=== PATIENT | female | born 1960 | race Caucasian/White ===

== ENCOUNTER → 2016-06-23 | Outpatient (CLI) | payer BC ==
[2016-06-23 10:30] LABS: ALT 38 U/L (9-52); AST 30 U/L (14-36); Cholesterol 180 mg/dL (<200); HDL Cholesterol 69 mg/dL (40-60); Triglycerides 72 mg/dL (<150)
== END | disposition home or self-care (01) ==
LOC: LABWHC1 09:43
PROVIDERS: ATTEND Internal Medicine Cardiovascular Disease
DX: E78.00 Pure hypercholesterolemia, unspecified (principal)
CPT/HCPCS: 36415; 80061; 84450; 84460

== ENCOUNTER → 2016-07-06 | Outpatient (CLI) | payer BC ==
--- NOTE | 2016-07-08 11:12 | MM ---
Reason for exam: screening (asymptomatic). Last mammogram was performed 1 year and 4 months ago. History: Patient is postmenopausal. Family history of breast cancer in maternal aunt at age 62. Physical Findings: A clinical breast exam by your physician is recommended on an annual basis and results should be correlated with mammographic findings. MG Screening Mammo w CAD Bilateral CC and MLO view(s) were taken. Prior study comparison: March 18, 2015, mammogram, performed at [facility]. October 07, 2012, mammogram, performed at [facility]. There are scattered fibroglandular densities. Finding: There are typically benign round calcifications in both breasts. There is no discrete abnormality. ASSESSMENT: Benign, BI-RAD 2 RECOMMENDATION: Routine screening mammogram of both breasts in 1 year.
== END | disposition home or self-care (01) ==
LOC: RADMAMWWP 07:03
PROVIDERS: ATTEND Family Medicine
DX: Z12.31 Encounter for screening mammogram for malignant neoplasm of breast (principal)

== ENCOUNTER → 2018-03-28 | Outpatient (CLI) | payer BC ==
[2018-03-28 12:54] LABS: ALT 19 U/L (9-52); AST 30 U/L (14-36); Albumin 4.3 g/dL (3.5-5.0); Alkaline Phosphatase 105 U/L (38-126); Anion Gap 9 mmol/L; Blood Urea Nitrogen 15 mg/dL (7-17); Calcium 10.1 mg/dL (8.4-10.2); Carbon Dioxide 29 mmol/L (22-30); Chloride 104 mmol/L (98-107); Glucose 94 mg/dL (74-99); HCT 41.2 % (34.0-46.0); HGB 12.8 gm/dL (11.4-16.0); MCH 28.3 pg (25.0-35.0); MCHC 31.2 g/dL (31.0-37.0); MCV 90.7 fL (80.0-100.0); Mean Platelet Volume 6.9; Platelet Count 333 k/uL (150-450); Potassium 4.5 mmol/L (3.5-5.1); RBC 4.54 m/uL (3.80-5.40); RDW 12.4 % (11.5-15.5); Sodium 142 mmol/L (137-145); Total Bilirubin 0.5 mg/dL (0.2-1.3); Total Protein 7.5 g/dL (6.3-8.2); WBC 7.4 k/uL (3.8-10.6)
== END ==
LOC: LABWHC1 11:00
PROVIDERS: ATTEND Psychiatry & Neurology Neurology
DX: Z00.00 Encounter for general adult medical examination without abnormal findings (principal); R26.89 Other abnormalities of gait and mobility
CPT/HCPCS: 36415; 80053; 82607; 82747; 85027

== ENCOUNTER → 2018-03-30 | Outpatient (CLI) | payer BC ==
--- NOTE | 2018-03-30 12:59 | MR ---
EXAMINATION TYPE: MR brain wo/w con DATE OF EXAM: 03/30/2018 COMPARISON: 03/04/2012, 03/25/2015 HISTORY: Abnormal scan; ataxia TECHNIQUE: Multiplanar, multisequence images of the brain and brainstem is performed without and with IV contras t, utilizing 7 mL intravenous Gadavist . FINDINGS: Diffusion weighted images demonstrate no evidence of a recent infarct or other diffusion ab normality. The brain volume is age appropriate. Midline structures demonstrate normal morphology. The craniocervical junction appears within normal limits. Post contrast images demonstrate no abnormal enhancement. The dural venous sinuses appear pa tent. WHITE MATTER: There are approximately 80-100 focal areas of abnormal signal seen scattered throughout the white mat ter bilaterally. The largest lesion is seen in the posterior right parietal lobe measuring 1.9 cm. No definite callosal lesions. No enhancing lesions. Changes of chronic sinusitis noted. No abnormal signal within the cerebellum. No asymmetric atrophy r elated to the cerebellum. No enhancement within the cerebellum. No cerebellopontine angle mass. Within the left frontal convexity there is a small 3 mm area of nodular enhancement of the dura retro spectively stable most likely related to a small meningioma. IMPRESSION: 1. Diffuse nonspecific white matter changes are stable from the prior exam. Differential diagnosis in cludes remote microvascular ischemia or demyelinating process. No enhancing lesions. 2. Chronic sinusitis. 3. There is a 3 mm area of nodular enhancement of the left frontal dura branches respectively stable dating back to 2011. Too small to characterize but may represent a tiny meningioma.
== END | disposition home or self-care (01) ==
LOC: RADMRIMAIN 11:31
PROVIDERS: ATTEND Psychiatry & Neurology Neurology
DX: G96.8 Other specified disorders of central nervous system (principal); R90.82 White matter disease, unspecified
CPT/HCPCS: 70553; A9581

== ENCOUNTER → 2018-08-08 | Outpatient (CLI) | payer BC ==
--- NOTE | 2018-08-09 13:19 | MM ---
Reason for exam: screening (asymptomatic). Last mammogram was performed 2 years and 1 month ago. History: Patient is postmenopausal and has history of other cancer at age 47. Family history of breast cancer in maternal aunt at age 62. Physical Findings: A clinical breast exam by your physician is recommended on an annual basis and results should be correlated with mammographic findings. MG 3D Screening Mammo W/Cad Bilateral CC and MLO view(s) were taken. Prior study comparison: July 06, 2016, bilateral MG screening mammo w CAD. March 18, 2015, mammogram, performed at [facility]. The breast tissue is heterogeneously dense. This may lower the sensitivity of mammography. Benign appearing calcifications in the left breast. No suspicious abnormality. No significant changes when compared with prior studies. ASSESSMENT: Benign, BI-RAD 2 RECOMMENDATION: Routine screening mammogram of both breasts in 1 year.
== END ==
LOC: RADMAMWWP 09:08
PROVIDERS: ATTEND Family Medicine
DX: Z12.31 Encounter for screening mammogram for malignant neoplasm of breast (principal)
CPT/HCPCS: 77063; 77067

== ENCOUNTER 2018-09-12 08:47 | Emergency (ER) | payer BC ==
[2018-09-12 08:53] VITALS: RESP 18; TEMP 98.3
[2018-09-12] MEDS ORDERED: KETOROLAC 30 MG/ML 1 ML VIAL IVP STA (09:17)
--- NOTE | 2018-09-12 09:37 | ED ---
URI HPI - General Chief Complaint: Upper Respiratory Infection Stated Complaint: sinus infection Time Seen by Provider: 09/12/18 08:54 Source: patient, RN notes reviewed Mode of arrival: ambulatory Limitations: no limitations - History of Present Illness Initial Comments: This a 57-year-old female presents emergency Department with chief complaint of sinus infection. Patient states she's had extreme facial pain last 2 weeks worsening. Patient has been on Augmentin, doxycycline and steroids along with Flonase, Sudafed and saline rinses. Patient states that has not in improved. She states symptoms seemed to worsen she is more pain on the right versus the left. She states that she does have history of sinus issues but never to this extent. Denies any prior sinus surgeries, nasal surgeries. Patient denies any fever, chills. She hasn't been to a headache but denies any neck pain or neck stiffness. Patient states that she does not grossly she does not feel well. She has no chest or abdominal pain no shortness of breath. - Related Data Home Medications Medication Instructions Recorded Confirmed Acetaminophen Tab [Tylenol Tab] 975 mg PO Q4H PRN 09/12/18 09/12/18 Cyclobenzaprine [Flexeril] 10 mg PO TID 09/12/18 09/12/18 Doxycycline Hyclate 100 mg PO BID 09/12/18 09/12/18 Etodolac [Lodine] 400 mg PO BID 09/12/18 09/12/18 Valsartan/Hydrochlorothiazide 1 tab PO DAILY 09/12/18 09/12/18 [Valsartan-Hctz 160-12.5 mg Tab] clonazePAM [KlonoPIN] 1 mg PO HS 09/12/18 09/12/18 Previous Rx's Medication Instructions Recorded carBAMazepine [carBAMazepine ER] 0 mg PO DIRECTED #30 cap 09/12/18 Allergies Allergy/AdvReac Type Severity Reaction Status Date / Time Sulfa (Sulfonamide Allergy Unknown Verified 09/12/18 10:14 Antibiotics) Review of Systems ROS Statement: Those systems with pertinent positive or pertinent negative responses have been documented in the HPI. ROS Other: All systems not noted in ROS Statement are negative. Past Medical History Past Medical History: Hypertension History of Any Multi-Drug Resistant Organisms: None Reported Past Surgical History: Hysterectomy Past Psychological History: No Psychological Hx Reported Smoking Status: Former smoker Past Alcohol Use History: None Reported Past Drug Use History: None Reported General Exam Limitations: no limitations General appearance: alert, in no apparent distress Head exam: Present: atraumatic, normocephalic, normal inspection Eye exam: Present: normal appearance, PERRL, EOMI. Absent: scleral icterus, conjunctival injection, periorbital swelling ENT exam: Present: normal oropharynx, mucous membranes moist, TM's normal bilaterally, normal external ear exam. Absent: normal exam (Facial tenderness moderate severe maxillary and frontal) Neck exam: Present: normal inspection, tenderness (Anterior), full ROM. Absent: meningismus, lymphadenopathy Respiratory exam: Present: normal lung sounds bilaterally. Absent: respiratory distress, wheezes, rales, rhonchi, stridor Cardiovascular Exam: Present: regular rate, normal rhythm, normal heart sounds. Absent: systolic murmur, diastolic murmur, rubs, gallop, clicks GI/Abdominal exam: Present: soft, normal bowel sounds. Absent: distended, tenderness, guarding, rebound, rigid Course Vital Signs 09/12/18 08:50 Temperature 98.3 F Pulse Rate 84 Respiratory 18 Rate Blood Pressure 141/83 O2 Sat by Pulse 100 Oximetry Medical Decision Making - Medical Decision Making 57-year-old female presents emergency Department for facial pain. Patient's pain is bilateral has been persistent for 2 weeks and worsening. Patient was told that she had acute sinusitis though CT has no evidence of acute sinusitis, mass or any other acute findings. Symptoms may be consistent with trigeminal neuralgia bilaterally. Patient will be started on promethazine and follow-up neurology. Patient may also follow-up with ENT. Patient otherwise neurologically intact, no signs of meningismus. - Lab Data Result diagrams: 09/12/18 10:48 09/12/18 10:48 Lab Results 09/12/18 09/12/18 Range/Units 10:48 10:48 WBC 10.4 (3.8-10.6) k/uL RBC 4.79 (3.80-5.40) m/uL Hgb 13.5 (11.4-16.0) gm/dL Hct 43.5 (34.0-46.0) % MCV 90.6 (80.0-100.0) fL MCH 28.2 (25.0-35.0) pg MCHC 31.1 (31.0-37.0) g/dL RDW 13.0 (11.5-15.5) % Plt Count 375 (150-450) k/uL Neutrophils % 53 % Lymphocytes % 31 % Monocytes % 6 % Eosinophils % 7 % Basophils % 1 % Neutrophils # 5.5 (1.3-7.7) k/uL Lymphocytes # 3.2 (1.0-4.8) k/uL Monocytes # 0.7 (0-1.0) k/uL Eosinophils # 0.7 (0-0.7) k/uL Basophils # 0.1 (0-0.2) k/uL Hypochromasia Slight Sodium 141 (137-145) mmol/L Potassium 4.1 (3.5-5.1) mmol/L Chloride 105 (98-107) mmol/L Carbon Dioxide 28 (22-30) mmol/L Anion Gap 8 mmol/L BUN 14 (7-17) mg/dL Creatinine 0.77 (0.52-1.04) mg/dL Est GFR (CKD-EPI)AfAm >90 (>60 ml/min/1.73 sqM) Est GFR (CKD-EPI)NonAf 86 (>60 ml/min/1.73 sqM) Glucose 78 (74-99) mg/dL Calcium 10.5 H (8.4-10.2) mg/dL Total Bilirubin 0.7 (0.2-1.3) mg/dL AST 30 (14-36) U/L ALT 39 (9-52) U/L Alkaline Phosphatase 112 (38-126) U/L Total Protein 7.3 (6.3-8.2) g/dL Albumin 4.4 (3.5-5.0) g/dL Disposition Clinical Impression: Trigeminal neuralgia Disposition: HOME SELF-CARE Condition: Stable Instructions (If sedation given, give patient instructions): Trigeminal Neuralgia (ED) Additional Instructions: Please return to the Emergency Department if symptoms worsen or any other concerns. Prescriptions: carBAMazepine [carBAMazepine ER] 0 mg PO DIRECTED #30 cap Is patient prescribed a controlled substance at d/c from ED?: No Referrals: Ashley Del Cid MD [Primary Care Provider] - 1-2 days Mahesh El MD [STAFF PHYSICIAN] - 1-2 days Layne Chambers MD [Medical Doctor] - 1-2 days Sharyn Dunne MD [STAFF PHYSICIAN] - 1-2 days Time of Disposition: 12:17
--- NOTE | 2018-09-12 10:10 | CT ---
EXAMINATION TYPE: CT facial bones wo con DATE OF EXAM: 09/12/2018 COMPARISON: None HISTORY: Facial pain, pressure, dental and jaw pain x [address] DLP: 459.1 mGycm CONTRAST: 0 mL of Isovue 300 The paranasal sinuses are examined in the axial plane at 2 mm thick sections. Reconstructed images i n the coronal plane were obtained. There is dental amalgam scatter artifact The maxillary sinuses are clear. The ethmoid air cells are clear. The sphenoid sinuses are clear. The frontal sinuses are clear. The septum is evaluated. There is septal deviation to the right. The ostiomeatal units are patent. Temporomandibular junctions appear within normal limits. Some degenerative change at the left temporo mandibular junction is suspected. Portion of the mastoid air cells within the [id number] are clear . IMPRESSIONS: 1. No suspicious abnormality to account for patient's symptoms.
[2018-09-12] MEDS ORDERED: HYDROcodone/APAP 5-325MG 1 EACH TAB PO STA (10:29)
[2018-09-12 11:36] LABS: ALT 39 U/L (9-52); AST 30 U/L (14-36); Albumin 4.4 g/dL (3.5-5.0); Alkaline Phosphatase 112 U/L (38-126); Anion Gap 8 mmol/L; Blood Urea Nitrogen 14 mg/dL (7-17); Calcium 10.5 mg/dL (8.4-10.2); Carbon Dioxide 28 mmol/L (22-30); Chloride 105 mmol/L (98-107); Glucose 78 mg/dL (74-99); Potassium 4.1 mmol/L (3.5-5.1); Sodium 141 mmol/L (137-145); Total Bilirubin 0.7 mg/dL (0.2-1.3); Total Protein 7.3 g/dL (6.3-8.2)
[2018-09-12 11:46] LABS: Basophils # (A) 0.1 k/uL (0-0.2); Basophils % (A) 1 %; Eosinophils # (A) 0.7 k/uL (0-0.7); Eosinophils % (A) 7 %; HCT 43.5 % (34.0-46.0); HGB 13.5 gm/dL (11.4-16.0); Hypochromasia Slight; Lymphocytes # (A) 3.2 k/uL (1.0-4.8); Lymphocytes % (A) 31 %; MCH 28.2 pg (25.0-35.0); MCHC 31.1 g/dL (31.0-37.0); MCV 90.6 fL (80.0-100.0); Mean Platelet Volume 7.4; Monocytes # (A) 0.7 k/uL (0-1.0); Monocytes % (A) 6 %; Neutrophils # (A) 5.5 k/uL (1.3-7.7); Neutrophils % (A) 53 %; Platelet Count 375 k/uL (150-450); RBC 4.79 m/uL (3.80-5.40); WBC 10.4 k/uL (3.8-10.6)
[2018-09-12] MEDS ORDERED: carBAMazepine 200 MG TAB PO STA (12:11)
[2018-09-12] MEDS ORDERED: ACET/COD 300 MG/30 MG STARTER PACK 6 TAB BTL PO STA (12:18)
[2018-09-12 12:27] VITALS: BP 135/77; PULSE 88
== END 2018-09-12 12:38 | disposition home or self-care (01) ==
LOC: EC 08:47
DX: G50.0 Trigeminal neuralgia (principal); I10 Essential (primary) hypertension; Z87.891 Personal history of nicotine dependence; Z79.1 Long term (current) use of non-steroidal anti-inflammatories (NSAID); Z79.899 Other long term (current) drug therapy; Z88.2 Allergy status to sulfonamides; Z53.8 Procedure and treatment not carried out for other reasons
CPT/HCPCS: 36415; 70486; 80053; 85025; 99284

== ENCOUNTER → 2018-11-17 | Outpatient (CLI) | payer BC ==
--- NOTE | 2018-11-17 13:45 | XR ---
EXAMINATION TYPE: XR skull complete DATE OF EXAM: 11/17/2018 COMPARISON: NONE HISTORY: Head pain TECHNIQUE: 4 views of the skull were obtained FINDINGS: The calvarium is grossly intact with no sutural widening. Sella turcica is unremarkable. Th ere is mild mucosal thickening in the right maxillary sinus. Remaining visualized paranasal sinuses a nd mastoid air cells appear well aerated. Nasal septum appears midline. No lytic or sclerotic lesion is seen within the calvarium. IMPRESSION: No evidence of skull fracture, lytic lesion or blastic lesion.
--- NOTE | 2018-11-17 13:47 | XR ---
EXAMINATION TYPE: XR mandible complete DATE OF EXAM: 11/17/2018 COMPARISON: CT of the facial bones dated 09/12/2018 HISTORY: Diffuse facial pain TECHNIQUE: 5 views of the mandible were obtained FINDINGS: There is no acute fracture or dislocation seen within the mandible. There is no suspicious osseous lesion identified. The visualized portions of the thoracic inlet and upper lungs appear unrem arkable and lungs appear well aerated. There is mild mucosal thickening in the right maxillary sinus. Moderate disc disease or degenerative disc disease is seen of the visualized upper cervical spine. N sangeetha septum remains overall midline. Temporomandibular joints are symmetric. IMPRESSION: No acute fracture or dislocation of the mandible. Temporomandibular joints are symmetric and unremarkable.
== END | disposition home or self-care (01) ==
LOC: RADXRMAIN 13:04
PROVIDERS: ATTEND Psychiatry & Neurology Neurology
DX: R51 Headache (principal)
CPT/HCPCS: 70110; 70260

== ENCOUNTER → 2018-12-19 | Outpatient (CLI) | payer BC ==
--- NOTE | 2018-12-19 09:30 | CT ---
EXAMINATION TYPE: CT facial bones wo/w con DATE OF EXAM: 12/19/2018 COMPARISON: 09/12/2018 HISTORY: Facial pain Automated exposure control for dose reduction was used. CONTRAST: CT scan of the facial bones is performed , patient injected with 75 mL of Isovue 300. TECHNIQUE: CT scan of the sinuses is performed without contrast, axial images are obtained, coronal r eformatted images are also reviewed. FINDINGS: The paranasal sinuses including the frontal, ethmoid, sphenoid, and maxillary sinuses bila terally are well-aerated minimal ethmoidal soft tissue opacification. The ostiomeatal complex is pat ent bilaterally on the coronal images. Visualized portion of mastoid air cells show no abnormal opacification. The globes are intact bilate rally. Shotty adenopathy noted. IMPRESSION: 1. Minimal chronic ethmoidal sinusitis
== END | disposition home or self-care (01) ==
LOC: RADCTMAIN 08:16
PROVIDERS: ATTEND Psychiatry & Neurology Neurology
DX: J32.2 Chronic ethmoidal sinusitis (principal)
CPT/HCPCS: 70488; Q9967

== ENCOUNTER 2019-04-06 06:36 | Day surgery (SDC) | payer BC ==
[2019-04-04 13:55] VITALS: BMI 21.2
[~2019-04-06 06:36] MED LIST: DEXAMETHASONE SOD PHOSPHATE 10 MG/ML 1 ML VIAL IV ONE; HYDROmorphone 0.5 MG/0.5 ML SYRINGE IVP PRN; LACTATED RINGERS 1,000 ML IV SCH; MIDAZOLAM 2 MG/2 ML VIAL IV PRN; ONDANSETRON 4 MG/2 ML VIAL IVP ONE
[2019-04-06 06:58] VITALS: RESP 16
[2019-04-06] MEDS ORDERED: PROPOFOL 10 MG/ML 20 ML VIAL IV ONE (07:58)
[2019-04-06] MEDS ORDERED: LIDOCAINE 1% INJ 10MG/ML (20 ML MDV) ONE (07:58)
[2019-04-06] MEDS ORDERED: fentaNYL (PF) 50 MCG/ML 2 ML AMP ONE (07:58)
[2019-04-06] MEDS ORDERED: LIDOCAINE 2%-EPI 1:100,000 20 ML VIAL ONE (07:58)
[2019-04-06] MEDS ORDERED: ROPIVACAINE 5 MG/ML 30 ML VIAL ONE (07:58)
[2019-04-06] MEDS ORDERED: LACTATED RINGERS 1,000 ML IV ONE (09:40)
--- NOTE | 2019-04-06 10:15 | P.ANPRN ---
Procedure Note - Anesthesia - Nerve Block Performed Right Adductor Canal Single Time Out Performed: Yes Location of Patient Procedure: PreOp Indication: Acute Post-Operative Pain, Dx/Pain Location (Right foot), Requested by Surgeon Specifically requested for management of pain by DrEphraim: Yandel Abbott Sedation Type: Sedate with meaningful contact maintained Position: Supine Catheter: None Needle Types: Pajunk Needle Gauge: 21 Ultrasound used to visualize needle placement: Yes Ultrasound used to observe medication spread: Yes Injectate: Other (see comment) (Lidocaine 1% with epinephrine -- 10cc) Adjunct: Epinephrine (see comment for dilution ratio)
--- NOTE | 2019-04-06 10:19 | P.ANPRN ---
Procedure Note - Anesthesia - Nerve Block Performed Right Popliteal Single Indication: Acute Post-Operative Pain, Dx/Pain Location (Right foot), Requested by Surgeon Specifically requested for management of pain by DrEphraim: Yandel Abbott Sedation Type: Sedate with meaningful contact maintained Preparation: Sterile Prep Position: Left Lateral Catheter: None Needle Types: Pajunk Needle Gauge: 21 Ultrasound used to visualize needle placement: Yes Ultrasound used to observe medication spread: Yes Injectate: 0.5% Ropivacaine (see comment for volume) (15 cc and 1% lidocaine + epinephrine --10cc)
--- NOTE | 2019-04-06 10:19 | P.OP ---
Date of Procedure: 04/06/19 Preoperative Diagnosis: Right hypermobile hallux valgus Postoperative Diagnosis: Same Procedure(s) Performed: 1. Correction of right first ray hypermobility with triplanar correction and first tarsometatarsal joint arthrodesis 2. Correction of right hallux valgus with modified Villalpando procedure 3. Use of intraoperative fluoroscopy by physician, right leg 4. Application of short leg splint by physician, right leg Anesthesia: GIRMA, regional Surgeon: Yandel Abbott Whittling Room Operator #1: Hank Paulino Estimated Blood Loss (ml): 5 IV fluids (ml): 1,200 Pathology: none sent Condition: stable Disposition: PACU Indications for Procedure: The patient is a very pleasant. His healthy 58-year-old female with a long- standing history of problems with her right foot. Clinically she had a symptomatically and hypermobile hallux valgus. Her x-rays showed a widened 1-2 intermetatarsal angle and uncovered the lateral sesamoid. She has failed over 6 months of nonsurgical treatment and presented to my office requesting surgery. Since he had failed a long course of nonsurgical treatment and had a painful hallux valgus deformity I think it is reasonable to proceed with surgery. We discussed different surgical options and based on the patient's age, degree of deformity, and physical exam findings I recommended a Lapidus type procedure. We discussed potential risks and competitions of surgery including but not limited to risk of anesthesia, superficial infection, deep infection, delayed wound healing, superficial wound necrosis, deep wound necrosis, nonunion of the fusion site, malunion of the fusion site, over correction of the deformity, under correction of the deformity, recurrence, symptomatically hardware, DVT, PE, other medical complications, dissatisfaction with surgery, and possibly loss of life or limb. The patient voiced understanding of these potential complications and also acknowledges that other less common complications were possible. She provided her verbal and written consent to go forward with surgery. Operative Findings: Intraoperative fluoroscopy pictures were saved as a "left foot" on imaging, but this was simply a mirror image mistake on the fluoroscopy tower. The correct right foot was operated on. Description of Procedure: The patient was identified in preoperative holding and the correct right limb was marked with my initials. I reviewed the consent form with the patient and her . All their questions were answered. The patient was given a block by anesthesia. She was then brought back to the OR and was positioned on the or table. A general anesthetic and preoperative antibiotics were given. A tourniquet was applied to the proximal aspect of the right leg. The right leg was then prepped and draped in the standard sterile fashion. Prior to starting surgery timeout was performed identifying the correct patient, operative extremity, and procedure. The patient's leg was then elevated, exsanguinated with an Esmarch bandage, and the tourniquet was inflated to 250 mmHg. I began by outlining a straight dorsal incision to the first tarsometatarsal joint starting at the proximal pole of the medial cuneiform and extending distally to the midshaft of the first metatarsal. Skin incision was made with a scalpel. The EHL tendon sheath was incised and the tendon was retracted laterally. The capsule over the first tarsometatarsal joint was sharply opened. A saw was used to plane the first metatarsal base to allow for rotation. A quarter inch osteotome was used to pie crust the plantar capsule to free up the first metatarsal. Attention was turned to the first webspace for the modified Villalpando portion of the procedure. A 1 cm incision was made. Dissection was carried down to the subcutaneous tissue. The lateral capsule of the first MTP joint and sesamoid suspensory ligament was incised. I was easily able to reduce the proximal phalanx on the metatarsal head. Attention was then turned back to the proximal aspect of the first metatarsal. A guidepin was placed in the 2 o'clock position 1 cm distal to the joint. Using the joystick pin and light pressure on the first metatarsal head I was able to rotate the metatarsal and close down the intermetatarsal space nicely covering the sesamoids. A standard 2.5 mm fulcrum was placed in a pocket hole at the proximal base of the first metatarsal laterally. A cutting guide was placed over the dorsal aspect of the first TMT joint and a stab incision was made just distal to the cut guide over the midshaft of the second metatarsal. The position was then placed with 1 pricilla over the lateral cortex of the second metatarsal and the other pricilla over the medial aspect of the first metatarsal. While the acute care nursing assistant gently rotated the guide pin at the base of the first metatarsal I tightened the positioner until two finger tightness was achieved. Clinically the toe appeared straight. Fluoroscopy was used to verify that both the lateral sesamoid was covered and the intermetatarsal angle was closed down. There was gapping seen medially at the first tarsometatarsal joint. Laterally there did not appear to be any elevation of the first ray. A guidepin was placed through the positioner holding the correction. A joint seeker for a long angle cut guide was placed in the most lateral aspect of the first tarsometatarsal joint "making a corner" with the fulcrum. A long angle cutting guide was positioned over the joint seeker and fluoroscopy was used to verify that the distal tip of the cut guide was centered in the first metatarsal. It was pinned in place proximally and distally. The joint seeker was removed and fluoroscopy was used to take a shot" dominant gunsight" to assure symmetric cuts off the base of the first metatarsal medial cuneiform. The slot over the medial cuneiform appeared parallel to the second tarsometatarsal joint. A small microsagittal saw was used to make the cuts. The pin through the positioner was removed followed by the positioner. The oblique pin through the cuneiform was removed followed by the cut guide. A compression/distractor device was placed with an extra 10 of rotation. The com pression/distractor device was opened and the bone was removed. Symmetric flat cuts had been achieved. The wound was thoroughly irrigated. A 2.0 mm drill bit was used to fenestrate the cut surfaces of the bone. I then gently compressed the compressor/distractor device until there was adequate compression across the joint. Clinically the joint appeared to be compressed and the toe was straight. Fluoroscopy was used to verify reduction of the hallux valgus deformity and symmetric compression across the joint. On the AP view the intermetatarsal angle appeared to be closed down and the joint compressed. On the lateral view the joint appeared to be compressed with no plantar gapping. An obliquely placed A K wire was placed from the dorsal lateral aspect of the first metatarsal into the medial cuneiform. A medial locking plate was placed, its position verified with fluoroscopy, and secured with locking screws. The compressor/distractor device was removed. A plate was placed dorsally, pinned in place, verified with fluoroscopy, and secured with locking screws. Attention was then turned to the medial eminence of the first MTP joint. A longitudinal incision was made. The capsule was incised. A Yrn was used to contour a small dorsomedial bump off the first metatarsal. A small section of the capsule was removed and the joint was imbricated with 0 Vicryl further correcting the hallux valgus deformity. Final fluoroscopic images were taken. On the AP view the joint appeared to be nicely compressed and the hardware was in acceptable position. The intermetatarsal angle was closed down and both sesamoids were covered. On the lateral view the hardware was in acceptable position, the joint appeared to be compressed. And there was no elevation of the first metatarsal. All wounds were thoroughly irrigated and closed in layers. Sterile dressing was applied. The tourniquet was let down. A well-padded bulky Nagy splint was placed with the ankle in neutral. The patient was awoken from her anesthetic, transferred to a gurney, and brought to recovery having tolerated the procedure well. Hank Paulino PA-C was required as a skilled acute care nursing assistant. Plan the patient is going to discharge home as an outpatient. She is to remain strictly nonweightbearing for 2 weeks. She'll follow-up in 2 weeks for splint removal, nonweightbearing x-rays of the foot, and likely suture removal. If she is doing well that time and her incisions are healed she can weight-bear as tolerated in a boot.
[2019-04-06 10:40] VITALS: TEMP 97
--- NOTE | 2019-04-06 11:41 | XR ---
Fluoroscopy INDICATION: Pain FINDINGS: Fluoroscopy time: 50 seconds. Images obtained: 7. IMPRESSIONS: 1. Documentation of fluoroscopy.
[2019-04-06 12:03] VITALS: BP 136/85; PULSE 97
== END 2019-04-06 12:35 | disposition home or self-care (01) ==
LOC: OR 06:36
PROVIDERS: ATTEND Orthopaedic Surgery
DX: M20.11 Hallux valgus (acquired), right foot (principal); I10 Essential (primary) hypertension; G50.0 Trigeminal neuralgia; M26.609 Unspecified temporomandibular joint disorder, unspecified side; R63.4 Abnormal weight loss; Z68.21 Body mass index [BMI] 21.0-21.9, adult; Z85.828 Personal history of other malignant neoplasm of skin; Z79.899 Other long term (current) drug therapy; Z88.2 Allergy status to sulfonamides
CPT/HCPCS: 64447; 64445; 76942; 73620; 28740; 28292; C1713; J2250; J1100; J0690; J2405; J2001; J3010; J2795; J2704

== ENCOUNTER → 2019-05-17 | Outpatient (CLI) | payer BC ==
--- NOTE | 2019-05-17 13:17 | US ---
EXAMINATION TYPE: US venous doppler duplex LE RT DATE OF EXAM: 05/17/2019 12:03 PM COMPARISON: NONE CLINICAL HISTORY: M79.671 Pain in right foot. status post bunionectomy. SIDE PERFORMED: Right TECHNIQUE: The lower extremity deep venous system is examined utilizing real time linear array sonog sree with graded compression, doppler sonography and color-flow sonography. VESSELS IMAGED: External Iliac Vein (EIV) Common Femoral Vein Deep Femoral Vein Greater Saphenous Vein * Femoral Vein Popliteal Vein Small Saphenous Vein * Proximal Calf Veins (* superficial vessels) Right Leg: Negative for DVT Grayscale, color doppler, spectral doppler imaging performed of the deep veins of the right lower ext remity. There is normal flow, compressibility, vascular waveforms. Results communicated to [facility] by tomography technologist shortly after exam was compl eted. IMPRESSION: No ultrasound evidence for acute DVT in the right lower extremity.
== END | disposition home or self-care (01) ==
LOC: RADUSWWP 11:42
PROVIDERS: ATTEND Orthopaedic Surgery
DX: M79.671 Pain in right foot (principal); I10 Essential (primary) hypertension; M20.11 Hallux valgus (acquired), right foot; I80.9 Phlebitis and thrombophlebitis of unspecified site; Z85.9 Personal history of malignant neoplasm, unspecified; Z87.891 Personal history of nicotine dependence; Z48.89 Encounter for other specified surgical aftercare

== ENCOUNTER → 2019-07-18 | Outpatient (CLI) | payer BC ==
[2019-07-18 10:37] LABS: HCT 40.3 % (34.0-46.0); HGB 12.7 gm/dL (11.4-16.0); MCH 27.9 pg (25.0-35.0); MCHC 31.5 g/dL (31.0-37.0); MCV 88.7 fL (80.0-100.0); Mean Platelet Volume 7.2; Platelet Count 374 k/uL (150-450); RBC 4.54 m/uL (3.80-5.40); RDW 12.5 % (11.5-15.5); WBC 6.8 k/uL (3.8-10.6)
[2019-07-18 18:09] LABS: Anion Gap 10.4 mmol/L (4.00-12.00); Carbon Dioxide 28.6 mmol/L (21.6-31.8); Potassium 3.8 mmol/L (3.5-5.5)
== END | disposition home or self-care (01) ==
LOC: LABWHC1 09:46
PROVIDERS: ATTEND Psychiatry & Neurology Neurology
DX: R51 Headache (principal)
CPT/HCPCS: 36415; 80051; 84450; 84460; 85027

== ENCOUNTER → 2019-08-08 | Outpatient (CLI) | payer BC ==
[2019-08-08 10:03] LABS: Basophils # (A) 0.1 k/uL (0-0.2); Basophils % (A) 1 %; Eosinophils # (A) 0.5 k/uL (0-0.7); Eosinophils % (A) 7 %; HCT 37.1 % (34.0-46.0); HGB 11.8 gm/dL (11.4-16.0); Lymphocytes # (A) 2.3 k/uL (1.0-4.8); Lymphocytes % (A) 32 %; MCH 28.1 pg (25.0-35.0); MCHC 31.7 g/dL (31.0-37.0); MCV 88.7 fL (80.0-100.0); Mean Platelet Volume 7.1; Monocytes # (A) 0.5 k/uL (0-1.0); Monocytes % (A) 7 %; Neutrophils # (A) 3.7 k/uL (1.3-7.7); Neutrophils % (A) 51 %; Platelet Count 401 k/uL (150-450); RBC 4.18 m/uL (3.80-5.40); RDW 12.9 % (11.5-15.5); WBC 7.2 k/uL (3.8-10.6)
[2019-08-08 16:29] LABS: African American GFR (CKD) 94.2 (60.0-200.0); Albumin 4.1 g/dL (3.80-4.90); Albumin/Globulin Ratio 2.16 (1.60-3.17); Anion Gap 7.7 mmol/L (4.00-12.00); Calcium 9.5 mg/dL (8.7-10.3); Carbon Dioxide 28.3 mmol/L (21.6-31.8); Chol/HDL Ratio 3.05; Globulin 1.9 g/dL (1.6-3.3); LDL Cholesterol,Calculated 96.2 mg/dL (0.0-131.0); Non-African American GFR(CKD) 81.3 (60.0-200.0); Potassium 3.8 mmol/L (3.5-5.5); Total Bilirubin 0.3 mg/dL (0.2-1.2); VLDL Calculation 16.8 mg/dL (5.00-40.00)
== END | disposition home or self-care (01) ==
LOC: LABWHC1 09:08
PROVIDERS: ATTEND Family Medicine
DX: Z00.00 Encounter for general adult medical examination without abnormal findings (principal)
CPT/HCPCS: 36415; 80053; 80061; 84443; 85025

== ENCOUNTER → 2019-12-01 | Outpatient (CLI) | payer BC ==
--- NOTE | 2019-12-05 11:33 | MM ---
Reason for exam: screening (asymptomatic). Last mammogram was performed 1 year and 4 months ago. History: Patient is postmenopausal and has history of other cancer at age 47. Family history of breast cancer in maternal aunt at age 62. Physical Findings: A clinical breast exam by your physician is recommended on an annual basis and results should be correlated with mammographic findings. MG 3D Screening Mammo W/Cad Bilateral CC and MLO view(s) were taken. Prior study comparison: August 08, 2018, bilateral MG 3d screening mammo w/cad. July 06, 2016, bilateral MG screening mammo w CAD. The breast tissue is heterogeneously dense. This may lower the sensitivity of mammography. There are benign appearing round calcifications in the left breast. There is no discrete abnormality. ASSESSMENT: Benign, BI-RAD 2 RECOMMENDATION: Routine screening mammogram of both breasts in 1 year.
== END | disposition home or self-care (01) ==
LOC: RADMAMWWP 10:22
PROVIDERS: ATTEND Family Medicine
DX: Z12.31 Encounter for screening mammogram for malignant neoplasm of breast (principal)
CPT/HCPCS: 77063; 77067

== ENCOUNTER → 2019-12-21 | Outpatient (CLI) | payer BC ==
--- NOTE | 2019-12-21 10:35 | CT ---
EXAMINATION TYPE: CT angio head DATE OF EXAM: 12/21/2019 COMPARISON: None HISTORY: Severe headache yesterday. CT DLP: 1913.1 mGycm CONTRAST: CTA [place] with 3-D reconstruction is performed and without and with IV Contrast, patient i njected with 100 mL of Isovue 370. Contrast CTA of the [place] was performed 3-D reconstruction imaging obtained at a separate workstation. Vertebrobasilar system as well as intracranial portions of the internal carotid arterie s and their major tributaries are patent. Outpouching is suggested in the region of the anterior comm unicating artery measuring 3 mm. Please note MRI provides greater sensitivity and specificity. Visua lized brain appears grossly unremarkable. 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
== END | disposition home or self-care (01) ==
LOC: RADCTMAIN 07:40
PROVIDERS: ATTEND Psychiatry & Neurology Neurology
DX: I60.9 Nontraumatic subarachnoid hemorrhage, unspecified (principal); I72.8 Aneurysm of other specified arteries
CPT/HCPCS: 70496; Q9967

== ENCOUNTER → 2020-05-28 | Outpatient (CLI) | payer BC ==
--- NOTE | 2020-05-28 13:41 | MR ---
EXAMINATION TYPE: MR angio head wo con DATE OF EXAM: 05/28/2020 COMPARISON: CT angiogram 12/21/2019, prior HISTORY: Cerebral aneurysm, nonruptured TECHNIQUE: Time of flight images focusing on the [place] were performed without contrast. Th ree-dimensional reconstructions performed on an alternate workstation. FINDINGS: Focal outpouching is noted at the medial aspect of the internal carotid artery on the right at the level of the siphon medial to the origin of the ophthalmic artery. This abnormality was not s een on previous CTA with certainty. Lesion measures 7 x 4 mm. Additional tolerated the inferior margin of the anterior communicating artery there is a focal oval a isaac measuring 5 mm, axial image 102. Anterior posterior circulation are intact. No evident dissection or embolus. 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 Anterior commu nicating artery aneurysm also noted.
== END | disposition home or self-care (01) ==
LOC: RADMRIMAIN 09:27
PROVIDERS: ATTEND Specialist
DX: I67.1 Cerebral aneurysm, nonruptured (principal)
CPT/HCPCS: 70544

== ENCOUNTER → 2020-06-11 | Outpatient (CLI) | payer BC ==
--- NOTE | 2020-06-11 12:20 | XR ---
EXAMINATION TYPE: XR chest 2V DATE OF EXAM: 06/11/2020 COMPARISON: NONE HISTORY: Chest pain TECHNIQUE: Frontal and lateral views of the chest are obtained. FINDINGS: There is no focal air space opacity. No evidence for pneumothorax. No pleural effusion. The cardiac silhouette size is within normal limits. The osseous structures are grossly intact. IMPRESSION: 1. No acute cardiopulmonary process.
[2020-06-11 12:34] LABS: Anisocytosis Slight; Basophils # (A) 0.1 k/uL (0-0.2); Basophils % (A) 1 %; Eosinophils # (A) 0.4 k/uL (0-0.7); Eosinophils % (A) 4 %; HCT 40.4 % (34.0-46.0); HGB 12.1 gm/dL (11.4-16.0); Hypochromasia Marked; Lymphocytes # (A) 2.9 k/uL (1.0-4.8); Lymphocytes % (A) 27 %; MCHC 29.8 g/dL (31.0-37.0); MCV 83.8 fL (80.0-100.0); Mean Platelet Volume 6.7; Monocytes # (A) 0.8 k/uL (0-1.0); Monocytes % (A) 8 %; Neutrophils # (A) 6.3 k/uL (1.3-7.7); Neutrophils % (A) 59 %; Platelet Count 413 k/uL (150-450); RBC 4.83 m/uL (3.80-5.40); RDW 17.3 % (11.5-15.5); WBC 10.8 k/uL (3.8-10.6)
[2020-06-11 14:58] LABS: Appearance,Urine Clear (Clear); Bilirubin,Urine Negative (Negative); Blood,Urine Trace (Negative); Color,Urine Yellow; Glucose,Urine (UA) Negative (Negative); Hyaline Casts,Urine 11 /lpf (0-2); Ketones,Urine Negative (Negative); Leukocyte Esterase,Urine Trace (Negative); Mucus,Urine Rare /hpf; Nitrite,Urine Negative (Negative); PH, Urine 5.5 (5.0-8.0); Protein,Urine Trace (Negative); RBC,Urine 13 /hpf (0-5); Specific Gravity,Urine 1.037 (1.001-1.035); Squamous Epithelial Cell,Urine 1 /hpf (0-4); Urobilinogen,Urine <2.0 mg/dL (<2.0); WBC,Urine 2 /hpf (0-5)
[2020-06-11 22:27] LABS: African American GFR (CKD) 81.1 (60.0-200.0); Albumin 4.8 g/dL (3.80-4.90); Albumin/Globulin Ratio 1.92 (1.60-3.17); Anion Gap 16.1 mmol/L (4.00-12.00); BUN/Creat Ratio 22.22 Ratio (12.00-20.00); Calcium 9.8 mg/dL (8.7-10.3); Carbon Dioxide 19.9 mmol/L (21.6-31.8); Globulin 2.5 g/dL (1.6-3.3); Potassium 4.2 mmol/L (3.5-5.5); Total Bilirubin 0.5 mg/dL (0.3-1.2); Total Protein 7.3 g/dL (6.2-8.2)
[2020-06-12 14:46] LABS: INR 0.96 (0.90-1.11); Partial Thromboplastin Time 25.4 sec (23.5-31.0); Prothrombin Time 10.4 sec (9.9-11.9)
== END | disposition home or self-care (01) ==
LOC: LABWHC1 10:49
PROVIDERS: ATTEND Specialist
DX: I67.1 Cerebral aneurysm, nonruptured (principal)
CPT/HCPCS: 36415; 71046; 80053; 81001; 85025; 85610; 85730; 93005

== ENCOUNTER → 2020-06-25 | Outpatient (CLI) | payer BC ==
--- NOTE | 2020-06-25 12:51 | XR ---
EXAMINATION TYPE: XR lumbar spine 2 or 3V DATE OF EXAM: 06/25/2020 Comparison: 04/03/2016 Clinical History: 59-year-old female low back pain, M54.5 Findings: Degenerative dextro convex curvature of the lumbar spine. The curvature appears to have progressed fr om 2016. Hypertrophic facet arthropathy mid and lower lumbar spine. Grade 1 anterolisthesis L4-L5 and L5-S1. Grade 1 retrolisthesis L1-L2 and L2-L3. These were present previously. Mild to moderate multi level degenerative disc disease. Some interval progression in disc interspace narrowing in the mid sean mbar spine. Vertebral body heights are maintained. Hyperdense debris within the right side of the colon, possibly ingested medication. Atherosclerotic a ortic calcifications. Impression: 1. Degenerated dextroconvex scoliotic curvature of the lumbar spine progressed from 2016. 2. Advanced hypertrophic facet arthropathy. Degenerative grade 1 retrolisthesis from L1 through L3 le vels and grade 1 anterolisthesis from L4 through S1 levels which were present previously as well. 3. Moderate degenerative disc disease in the mid lumbar spine has progressed.
== END | disposition home or self-care (01) ==
LOC: RADXRMAIN 12:19
PROVIDERS: ATTEND Family Medicine
DX: M43.16 Spondylolisthesis, lumbar region (principal); M51.36 Other intervertebral disc degeneration, lumbar region; M47.816 Spondylosis without myelopathy or radiculopathy, lumbar region; M41.86 Other forms of scoliosis, lumbar region
CPT/HCPCS: 72100

== ENCOUNTER → 2020-07-31 | Outpatient (CLI) | payer BC ==
[2020-07-31 19:16] LABS: HGB 10.7 g/dL (12.0-15.0); MCH 26.6 pg (27.0-32.0); MCHC 30.6 g/dL (32.0-37.0); MCV 86.8 fL (80.0-97.0); Mean Platelet Volume 9.4 fL (9.5-12.2); Platelet Count 402 X 10*3/uL (140-440); RBC 4.03 X 10*6/uL (4.10-5.20); RDW 17.7 % (11.5-14.5); WBC 8.93 X 10*3/uL (4.50-10.00)
[2020-07-31 19:41] LABS: Anion Gap 6.8 mmol/L (4.00-12.00); Carbon Dioxide 30.2 mmol/L (21.6-31.8); Potassium 4.1 mmol/L (3.5-5.5)
== END | disposition home or self-care (01) ==
LOC: LABWHC1 10:41
PROVIDERS: ATTEND Psychiatry & Neurology Neurology
DX: R51.9 Headache, unspecified (principal)
CPT/HCPCS: 36415; 80051; 84450; 84460; 85027

== ENCOUNTER → 2020-09-16 | Outpatient (CLI) | payer BC, MEDICAID ==
[2020-09-16 08:26] VITALS: BP 121/77; PULSE 70; RESP 16; TEMP 97.6
--- NOTE | 2020-09-16 08:51 | P.CONS ---
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 The patient says that she favors her right side and maybe that's why she is having pain on the right side of her lower back. The patient is in the lower lumbar area with radiation to the upper buttock area on the right side with no paresthesia in the lower extremities. The patient has no pain on the left side of her lower back. Her pain increases with walking and standing for too long and improves by sitting down and lying down in bed. The pain does not wake the patient up at night and she denies any weight loss. She also denies any bowel or bladder dysfunction. The patient has been using TENS unit on her back which helps temporarily. She denies any history of diabetes or cardiac issues. She does have a history of cerebral aneurysm at 3 mm of diameter that is being monitored yearly. Past Medical History Past Medical History: Hypertension Additional Past Medical History / Comment(s): jaw pain History of Any Multi-Drug Resistant Organisms: None Reported Past Surgical History: Hysterectomy, Orthopedic Surgery Additional Past Surgical History / Comment(s): RT FOOT SX. COLONOSCOPY. PAIN CLINIC PROCEDURES Past Anesthesia/Blood Transfusion Reactions: No Reported Reaction Past Psychological History: No Psychological Hx Reported Additional Psychological History / Comment(s): anxious r/t health issues Smoking Status: Former smoker Past Alcohol Use History: None Reported Additional Past Alcohol Use History / Comment(s): smoked 10 years 10-12cig/d adal t 1995 years ago Past Drug Use History: None Reported - Past Family History Mother Family Medical History: No Reported History Medications and Allergies Home Medications Medication Instructions Recorded Confirmed Type Valsartan/Hydrochlorothiazide 1 tab PO DAILY 09/12/18 09/16/20 History [Valsartan-Hctz 160-12.5 mg Tab] OXcarbazepine [Trileptal] 300 mg PO BID 09/11/20 09/16/20 History Propranolol HCl [Inderal LA] 120 mg PO DAILY 09/11/20 09/16/20 History Allergies Allergy/AdvReac Type Severity Reaction Status Date / Time Sulfa (Sulfonamide Allergy Swelling Verified 09/11/20 10:44 Antibiotics) Physical Exam Vitals: Vital Signs Temp Pulse Resp BP Pulse Ox 09/16/20 08:23 97.6 F 70 16 121/77 100 - Constitutional General appearance: average body habitus - EENT Eyes: PERRLA - Integumentary Integumentary: no calor, no cellulitis, no cyanotic, no decreased turgor, no flushed, no jaundiced, no normal, no normal turgor, no pale, no rash, no ulcer - Neurologic Neuro exam of the lower extremities showed normal and symmetrical muscle strength bilaterally. Normal knee reflexes bilaterally and absent ankle reflex bilaterally. Straight leg raising test is negative bilaterally. Positive tenderness in the lumbar paravertebral musculature on the right side. Facet loading test is positive on the right side. Neurologic: CNII-XII intact - Psychiatric Psychiatric: A&O x's 3, appropriate affect, intact judgment & insight Results Comments: The lumbar spine MRI which was done in July 2020 showed the following: Dextroconvex scoliosis and multilevel malalignment associated with multilevel spondylosis Moderate spinal canal stenosis from L2-3 to L5-S1 with the neural foraminal stenosis at the L5-S1 level and impingement of the right L5 nerve root Assessment and Plan Plan: This is a 59-year-old lady with what seems to be lumbar spondylosis without myelopathy and impingement of the right L5 nerve root. Clinically she shows no symptoms of lumbar spondylosis and not lumbar radiculopathy at this point. The patient may benefit from getting diagnostic lumbar medial branch block on the right side for levels L3 4, L4-L5 and L5-S1 under fluoroscopic guidance. The procedure was explained to the patient and her questions were answered. The diagnostic medial branch block leads to significant relief of pain even though it was only for a few hours then the patient may be a candidate for lumbar RFA which will prolong her pain improvement. I thank Dr. Joseph for the referral
== END ==
LOC: PNWHC3 08:10
PROVIDERS: ATTEND Anesthesiology
DX: M47.816 Spondylosis without myelopathy or radiculopathy, lumbar region (principal); I10 Essential (primary) hypertension; Z87.891 Personal history of nicotine dependence
CPT/HCPCS: 99211

== ENCOUNTER 2020-10-11 07:32 | Day surgery (SDC) | payer MEDICAID ==
[2020-10-09 14:50] VITALS: BMI 23.1
[2020-10-11 07:48] VITALS: RESP 16; TEMP 97.1
[2020-10-11] MEDS ORDERED: LACTATED RINGERS 1,000 ML IV ONE (07:51)
[2020-10-11] MEDS ORDERED: LIDOCAINE 1% (10MG/ML) FOR IV START INTRADERMA ONE (07:51)
[2020-10-11] MEDS ORDERED: MIDAZOLAM 2 MG/2 ML VIAL ONE (08:33)
[2020-10-11] MEDS ORDERED: ROPIVACAINE 5MG/ML 20ML VIAL ONE (08:33)
[2020-10-11] MEDS ORDERED: IOPAMIDOL M200 10 ML VIAL ONE (08:33)
[2020-10-11] MEDS ORDERED: fentaNYL (PF) 50 MCG/ML 2 ML AMP ONE (08:33)
[2020-10-11] MEDS ORDERED: TRIAMCINOLONE ACETONIDE 40 MG/ML 1 ML VIAL ONE (08:33)
--- NOTE | 2020-10-11 08:47 | P.PCN ---
Date of Procedure: 10/11/20 Description of Procedure: PREOPERATIVE DIAGNOSIS : Lumbar spondylosis with Facet Arthropathy without myelopathy POSTOPERATIVE DIAGNOSIS: same PROCEDURE: first Diagnostic lumbar medial branch block with fluoroscopy at L2, L3, L4, L5 right side which covers facets L3-4 and L4-5 and L5-S1 ANESTHESIA: Local anesthetic; moderate IV sedation with anesthesia team Fluoroscopy was used for the procedure and images were saved in the radiology portion of the chart. Surgeon: Chad Rey MD PROCEDURE INDICATION: Lumbar back pain without radiculopathy, not responsive to conservative management. PROCEDURE DESCRIPTION: the patient was seen and identified in the preop holding area , risks and benefits and possible complications of the procedure and alternatives were discussed with the patient, and the patient agreed to proceed with the procedure and signed the consent . IV was started , vital signs were monitored during the procedure and fluoroscopy was used to maximize the benefit and accuracy of the needle placement, and sedation was given to decrease patient anxiety. Patient was taken to the procedure room and placed in prone position. The lumbar region was prepped using chlorhexidineX-2. Under strict sterile technique using AP fluoroscopy the bilateral sacral ala were identified and using ipsilateral oblique fluoroscopy ,the junction of the transverse process and the superior articulating process of the L4, L5 vertebra which corresponds to the fluoroscopy image of the eye of the Sushil dog for the medial branches were identified. Subsequently, after local infiltration of skin with lidocaine 1% 0.2 mL at each level , a 25-gauge 3.5" Quincke-type needle was placed at the junction of the base of the transverse process and the superior articular process at the appropriate level as well as the sacral ala, and the needle was advanced until the periosteum contacted, needle placement confirmed with AP and oblique fluoroscopy, 0.2 mL of Isovue 200 per level was injected which revealed no vascular uptake and after negative aspiration. I mary up 4 mL of 0.5% ropivacaine and 1 mL of 40 mg/mL kenalog and injected 1 mL of this injectate at each level and the needle subsequently removed . A total of 3 levels injected unilaterally At the end of the procedure and the needles were removed and a bandage applied after the skin was cleaned. The patient was taken to recovery room in stable condition and monitors in the recovery room for 20-30 minutes and discharged home in stable condition after discharge criteria met and patient will follow up in clinic in 2 weeks EBL: Minimal COMPLICATION: None.
[2020-10-11] MEDS ORDERED: IV FLUID CONTINUATION 1,000 ML IV ONE (08:50)
--- NOTE | 2020-10-11 09:04 | FL ---
EXAMINATION TYPE: FL guided pain mgmt statistic DATE OF EXAM: 10/11/2020 HISTORY: Pain Right Lumbar facet block, Dr. Rey .12 sec fl time. 2 images.
[2020-10-11 09:14] VITALS: BP 151/80; PULSE 72
== END 2020-10-11 09:19 | disposition home or self-care (01) ==
LOC: ORPAIN 07:32
PROVIDERS: ATTEND Anesthesiology
DX: M47.816 Spondylosis without myelopathy or radiculopathy, lumbar region (principal); I10 Essential (primary) hypertension; F41.9 Anxiety disorder, unspecified; Z79.899 Other long term (current) drug therapy; Z88.2 Allergy status to sulfonamides
CPT/HCPCS: 64493; 64494; 64495; J3301; Q9966; J2795

== ENCOUNTER 2020-11-01 08:20 | Day surgery (SDC) | payer MEDICAID ==
[2020-10-29 14:30] VITALS: BMI 23.6
[2020-11-01] MEDS ORDERED: LACTATED RINGERS 1,000 ML IV ONE (08:50)
[2020-11-01 08:58] VITALS: TEMP 97.7
[2020-11-01] MEDS ORDERED: fentaNYL (PF) 50 MCG/ML 2 ML AMP ONE (09:13)
[2020-11-01] MEDS ORDERED: MIDAZOLAM 2 MG/2 ML VIAL ONE (09:13)
[2020-11-01] MEDS ORDERED: ROPIVACAINE 5MG/ML 20ML VIAL ONE (09:13)
[2020-11-01] MEDS ORDERED: TRIAMCINOLONE ACETONIDE 40 MG/ML 1 ML VIAL ONE (09:13)
[2020-11-01] MEDS ORDERED: IOPAMIDOL M200 10 ML VIAL ONE (09:13)
--- NOTE | 2020-11-01 09:27 | P.PCN ---
Date of Procedure: 11/01/20 Description of Procedure: PREOPERATIVE DIAGNOSIS : Lumbar spondylosis with Facet Arthropathy without myelopathy POSTOPERATIVE DIAGNOSIS: same PROCEDURE: second Diagnostic lumbar medial branch block with fluoroscopy at L2, L3, L4, L5 right side which covers facets L3-4 and L4-5 and L5-S1 ANESTHESIA: Local anesthetic; moderate IV sedation with anesthesia team Fluoroscopy was used for the procedure and images were saved in the radiology portion of the chart. Surgeon: Chad Rey MD PROCEDURE INDICATION: Lumbar back pain without radiculopathy, not responsive to conservative management. PROCEDURE DESCRIPTION: the patient was seen and identified in the preop holding area , risks and benefits and possible complications of the procedure and alternatives were discussed with the patient, and the patient agreed to proceed with the procedure and signed the consent . IV was started , vital signs were monitored during the procedure and fluoroscopy was used to maximize the benefit and accuracy of the needle placement, and sedation was given to decrease patient anxiety. Patient was taken to the procedure room and placed in prone position. The lumbar region was prepped using chlorhexidineX-2. Under strict sterile technique using AP fluoroscopy the bilateral sacral ala were identified and using ipsilateral oblique fluoroscopy ,the junction of the transverse process and the superior articulating process of the L4, L5 vertebra which corresponds to the fluoroscopy image of the eye of the Sushil dog for the medial branches were identified. Subsequently, after local infiltration of skin with lidocaine 1% 0.2 mL at each level , a 25-gauge 3.5" Quincke-type needle was placed at the junction of the base of the transverse process and the superior articular process at the appropriate level as well as the sacral ala, and the needle was advanced until the periosteum contacted, needle placement confirmed with AP and oblique fluoroscopy, 0.2 mL of Isovue 200 per level was injected which revealed no vascular uptake and after negative aspiration. I mary up 4 mL of 0.5% ropivacaine and 1 mL of 40 mg/mL kenalog and injected 1 mL of this injectate at each level and the needle subsequently removed . A total of 3 levels injected unilaterally At the end of the procedure and the needles were removed and a bandage applied after the skin was cleaned. The patient was taken to recovery room in stable condition and monitors in the recovery room for 20-30 minutes and discharged home in stable condition after discharge criteria met and patient will follow up in clinic in 2 weeks EBL: Minimal COMPLICATION: None.
[2020-11-01] MEDS ORDERED: IV FLUID CONTINUATION 1,000 ML IV ONE ×2 (09:30)
[2020-11-01 09:56] VITALS: BP 151/83; PULSE 61; RESP 18
--- NOTE | 2020-11-01 13:33 | FL ---
Fluoroscopy HISTORY: Pain 6 seconds fluoroscopy time supplied to the referring clinician. 2 intraoperative C-arm images docume nt the procedure. See dictated report from anesthesia.
== END 2020-11-01 10:10 | disposition home or self-care (01) ==
LOC: ORPAIN 08:20
PROVIDERS: ATTEND Anesthesiology
DX: M47.816 Spondylosis without myelopathy or radiculopathy, lumbar region (principal); I10 Essential (primary) hypertension; Z79.899 Other long term (current) drug therapy; Z88.2 Allergy status to sulfonamides
CPT/HCPCS: 64493; 64494; 64495; J2250; J3301; J3010; Q9966; J2795

== ENCOUNTER → 2020-11-20 | Outpatient (CLI) | payer MEDICAID ==
[2020-11-20 11:22] VITALS: BP 138/83; PULSE 57; RESP 18; TEMP 97.3
--- NOTE | 2020-11-20 11:35 | P.PN ---
Subjective Progress Note Date: 11/20/20 This is a 60-year-old lady with history of axial lower back pain mostly on the right side of her spine however recently it started to appear on the left side of her lower back with occasional radiation to the left buttock area. The patient had a diagnostic lumbar medial branch block on the right side only for the L3 4, L4 5 and L5-S1 levels with 100% of pain relief for a few days as she states. Patient denies new-onset weakness, bowel/bladder incontinence, or any other signs or symptoms of cauda equina syndrome. There are no signs of acute intoxication, and no indications of medication diversion or overuse. In addition to above, 13-point review of systems is also negative for chest pain, shortness of breath, changes in vision, changes in hearing, new onset weakness, abdominal pain, diarrhea, extreme fatigue, malaise, fever, skin changes, homicidal or suicidal ideation, or bowel or bladder incontinence. Vital Signs: Reviewed in EMR Gen: AAOx3, NAD HEENT: PERRLA,hearing grossly normal Pulm: resp unlabored Neck: supple, trachea midline Neuro exam of the lower extremities: Normal muscle strength bilaterally Straight leg raising test: Chad's test: Range of motion of the lumbar spine: Facet loading test: Tenderness in the paravertebral musculature: Positive tenderness in the lumbar paravertebral musculature bilaterally and also around the sacroiliac joints bilaterally Neuro: CN II-XII grossly intact, Imaging: Reviewed in EMR/chart Assessment: Lumbar spondylosis without myelopathy with pain responsive to diagnostic medial branch block Plan: 1. Explanation: Opioid and psychological risk scores were reviewed. Diagnoses, prognoses, and multiple treatment options including but not limited to physical therapy, interventional therapies, adjuvant medical therapies, narcotic medication therapies, and surgery were discussed with the patient and all questions were answered to the patient's satisfaction. 2. Opioid agreement: Signed with the patient and the patient is warned not to use opioids while driving or before driving and not to combine opioids with benzodiazepines or alcohol. 3. Counseling: The patient was counseled extensively on SMOKING CESSATION, BODY MASS INDEX, EXERCISE. Specifically, the patient was instructed regarding the importance of smoking cessation, obesity, and exercise in the context of both chronic pain and overall health. 4. Procedures: Schedule for lumbar medial branch RFA for levels of L3 4, L4-L5 and L5-S1 on the right side 5. Consultations: None 6. Investigations: None 7. Medications: none for now 8. Disposition: Proceed with the above-mentioned procedure 9. Maps were reviewed and were appropriate. Objective - Vital Signs Vital signs: Vital Signs Temp 97.3 F L 11/20/20 11:14 Pulse 57 L 11/20/20 11:14 Resp 18 11/20/20 11:14 BP 138/83 11/20/20 11:14 Pulse Ox 100 11/20/20 11:14
== END ==
LOC: PNWHC3 11:07
PROVIDERS: ATTEND Anesthesiology
DX: M47.816 Spondylosis without myelopathy or radiculopathy, lumbar region (principal); Z88.2 Allergy status to sulfonamides; Z87.891 Personal history of nicotine dependence
CPT/HCPCS: 99211

== ENCOUNTER → 2020-12-13 | Outpatient (CLI) | payer MEDICAID ==
--- NOTE | 2020-12-17 10:31 | MM ---
Reason for exam: screening (asymptomatic). Last mammogram was performed 1 year ago. History: Patient is postmenopausal and has history of other cancer at age 47. Family history of breast cancer in maternal aunt at age 62. Physical Findings: A clinical breast exam by your physician is recommended on an annual basis and results should be correlated with mammographic findings. MG 3D Screening Mammo W/Cad Bilateral CC and MLO view(s) were taken. Prior study comparison: December 01, 2019, bilateral MG 3d screening mammo w/cad. August 08, 2018, bilateral MG 3d screening mammo w/cad. The breast tissue is heterogeneously dense. This may lower the sensitivity of mammography. Benign oil cyst calcifications on the left breast. No significant changes when compared with prior studies. ASSESSMENT: Benign, BI-RAD 2 RECOMMENDATION: Routine screening mammogram of both breasts in 1 year.
== END | disposition home or self-care (01) ==
LOC: RADMAMWWP 09:18
PROVIDERS: ATTEND Family Medicine
DX: Z12.31 Encounter for screening mammogram for malignant neoplasm of breast (principal); Z78.0 Asymptomatic menopausal state; Z80.3 Family history of malignant neoplasm of breast
CPT/HCPCS: 77063; 77067

== ENCOUNTER → 2020-12-13 | Day surgery (SDC) | payer MEDICAID ==
[2020-12-11 10:17] VITALS: BMI 22.7
[~2020-12-13] MED LIST changes: -DEXAMETHASONE SOD PHOSPHATE 10 MG/ML 1 ML VIAL IV ONE; -HYDROmorphone 0.5 MG/0.5 ML SYRINGE IVP PRN; +IV FLUID CONTINUATION 800 ML IV ONE; +LIDOCAINE 1% (10MG/ML) FOR IV START INTRADERMA PRN; -MIDAZOLAM 2 MG/2 ML VIAL IV PRN; +MIDAZOLAM 2 MG/2 ML VIAL ONE; -ONDANSETRON 4 MG/2 ML VIAL IVP ONE; +ROPIVACAINE 5MG/ML 20ML VIAL ONE; +fentaNYL (PF) 50 MCG/ML 2 ML AMP ONE; +methylPREDNISolone ACETATE 40 MG/ML 1 ML VIAL ONE
[2020-12-13 07:55] VITALS: TEMP 97.1
--- NOTE | 2020-12-13 08:47 | P.PCN ---
Date of Procedure: 12/13/20 Procedure(s) Performed: PREOPERATIVE DIAGNOSIS: 1-Lumbar Spondylosis with Facet Arthropathy without myelopathy. 2- Lumber degenerative disc disease. POSTOPERATIVE DIAGNOSIS: 1- Lumbar Spondylosis with Facet Arthropathy without myelopathy. 2- Lumber degenerative disc disease. PROCEDURES : Right Radiofrequency thermocoagulation,L2 , L3 , L4 , and L5 medial branch, with fluoroscopic guidance (fluoroscopy images available in the radiology department) ( to denervate the facet joint at Right L3-4 ,L4-5 ,and L5-S1 levels ). ANESTHESIA: Monitered anesthesia care as per anesthesia department. EBL: Minimal PROCEDURE INDICATION: The patient with low back pain secondary to lumbar facet arthropathy who had more than 50% relief of her pain with previous diagnostic lumbar medial branch block with bupivacaine. PROCEDURE DESCRIPTION / TECHNIQUE: The patient was seen and identified in the preoperative area. Risks, benefits, complications, including but not limited to risk of infection ,bleeding , allergic reactions to the medications and no complete pain releife , and alternatives were discussed with the patient, the patient agreed to proceed with the procedure and signed the consent. IV was started. Vital signs remained stable throughout the procedure. Patient was taken to the OR and time out was completed. The patient was placed in the prone position on the procedure table. The lumber area was prepped and draped in the usual sterile fashion. . Vital signs were closely monitored during the procedure .IV sedation was used during the procedure to decrease patients anxiety. Using AP and then oblique fluoroscopy, the ``eye of the Sushil dog corresponding to the connection between the superior and transverse articular processes of right L2 , L3, L4, and L5 were identified, marked, and localized with 1% lidocaine. Subsequently, a 18 -iw radiofrequency cannula with a 10-mm active tip was advanced guided by fluoroscopy to each of the``eyes of the Sushil dog at right L2 ,L3, L4, and L5. Each site then underwent sensory testing at 50 Hz and 0 to 1 volt and motor testing at 2.5 Hz and 0 to 3 volt with local stimulation, but no radicular symptoms down the legs. Thereafter each sites underwent radiofrequency thermocoagulation at 80 degrees celsius for 90 seconds after injecting 0.5 ml of PF Ropivacaine 1ml, then after the thermocoagulation done , 1 ml of the block solution containing Depo-Medrol 40 mg and 4 ml of Ropivacaine 0.5% was injected at the right L2 ,L3 , L4 , and L5 , levels after negative aspiration of CSF and blood and with no paresthesias. Cannulas were retracted while injecting lidocaine 1% until the needle is out. At the end of the procedure, the skin was cleansed and bandages were applied. COMPLICATIONS: No acute complications. DISPOSITION / PLANS: The patient was placed in a supine position and transferred to the recovery area in a stable condition for observation and was discharged from the recovery room after meeting discharge criteria. Home discharge instructions given to the patient by the staff. The patient was reexamined prior to discharge. The patient will schedule a follow up in the clinic in 2-4 weeks.
[2020-12-13 09:11] VITALS: BP 143/85; PULSE 61; RESP 16
--- NOTE | 2020-12-13 10:09 | FL ---
Fluoroscopy INDICATION: Pain FINDINGS: Fluoroscopy time: 13 seconds. Images obtained: 5. IMPRESSIONS: 1. Documentation of fluoroscopy.
== END ==
LOC: ORPAIN 07:39
PROVIDERS: ATTEND Specialist
DX: M47.816 Spondylosis without myelopathy or radiculopathy, lumbar region (principal); M51.36 Other intervertebral disc degeneration, lumbar region; Z88.2 Allergy status to sulfonamides; I10 Essential (primary) hypertension; Z79.899 Other long term (current) drug therapy
CPT/HCPCS: 64635; 64636 ×2; J2250; J1030; J3010; J2795

== ENCOUNTER → 2021-01-06 | Outpatient (CLI) | payer MEDICAID ==
[2021-01-06 08:32] VITALS: BP 163/87; PULSE 61; RESP 18; TEMP 98.3
--- NOTE | 2021-01-06 08:46 | P.PN ---
Subjective Progress Note Date: 01/06/21 This is a 60-year-old lady with history of chronic mostly axial lower back pain. The patient has more pain on the right side than the left side of her spine and that's why we decided to do only the right side medial branch block and then ablation. The patient's pain on the right side is 0 out of 10 as she states however she still has aching pain constantly at about 6 out of 10 on the left side of her lower back with no radiation to the lower extremities. Patient denies new-onset weakness, bowel/bladder incontinence, or any other signs or symptoms of cauda equina syndrome. There are no signs of acute intoxication, and no indications of medication diversion or overuse. In addition to above, 13-point review of systems is also negative for chest pain, shortness of breath, changes in vision, changes in hearing, new onset weakness, abdominal pain, diarrhea, extreme fatigue, malaise, fever, skin changes, homicidal or suicidal ideation, or bowel or bladder incontinence. Vital Signs: Reviewed in EMR Gen: AAOx3, NAD HEENT: PERRLA,hearing grossly normal Pulm: resp unlabored Neck: supple, trachea midline Neuro exam of the lower extremities: Normal muscle strength bilaterally Straight leg raising test: Negative bilaterally Chad's test: Negative on the left side Range of motion of the lumbar spine: Facet loading test: Positive on the left side Tenderness in the paravertebral musculature: Positive on the left side in the lumbar paravertebral musculature Neuro: CN II-XII grossly intact, Imaging: Reviewed in EMR/chart Assessment: Lumbar spondylosis without myelopathy Lumbar DDD Plan: 1. Explanation: Opioid and psychological risk scores were reviewed. Diagnoses, prognoses, and multiple treatment options including but not limited to physical therapy, interventional therapies, adjuvant medical therapies, narcotic medication therapies, and surgery were discussed with the patient and all questions were answered to the patient's satisfaction. 2. Opioid agreement: Signed with the patient and the patient is warned not to use opioids while driving or before driving and not to combine opioids with benzodiazepines or alcohol. 3. Counseling: The patient was counseled extensively on SMOKING CESSATION, BODY MASS INDEX, EXERCISE. Specifically, the patient was instructed regarding the importance of smoking cessation, obesity, and exercise in the context of both chronic pain and overall health. 4. Procedures: Schedule for a diagnostic lumbar medial branch block for the medial branches L2, L3, L4, and L5 on the left side under fluoroscopic guidance. The patient failed to respond to home exercise therapy, physical therapy, and oral analgesics. Positive then we'll proceed with RFA on the left side. 5. Consultations: None 6. Investigations: None 7. Medications: Continue Vicoprofen as needed for pain 8. Disposition: Proceed with the above-mentioned procedure as soon as possible 9. Maps were reviewed and were appropriate. Objective - Vital Signs Vital signs: Vital Signs Temp 98.3 F 01/06/21 08:29 Pulse 61 01/06/21 08:29 Resp 18 01/06/21 08:29 BP 163/87 01/06/21 08:29 Pulse Ox 95 01/06/21 08:29
== END ==
LOC: PNWHC3 08:24
PROVIDERS: ATTEND Anesthesiology
DX: M47.816 Spondylosis without myelopathy or radiculopathy, lumbar region (principal); M51.36 Other intervertebral disc degeneration, lumbar region; Z88.2 Allergy status to sulfonamides; Z87.891 Personal history of nicotine dependence
CPT/HCPCS: 99211

== ENCOUNTER → 2021-06-06 | Outpatient (CLI) | payer MEDICAID ==
--- NOTE | 2021-06-06 10:38 | MR ---
EXAMINATION TYPE: MR angio head wo con DATE OF EXAM: 06/06/2021 COMPARISON: 05/28/2020 HISTORY: Cerebral Aneurysm TECHNIQUE: Utilizing 3-D [id number] intracranial MRA of the [place] of [place] was performed. FINDINGS: Focal outpouching is noted at the medial aspect of the internal carotid artery on the right at the le june of the siphon medial to the origin of the ophthalmic artery. Lesion measures 7 x 4 mm. 5 mm promi nence anterior communicating artery stable. Vertebral basilar system is patent. Vertebral arteries demonstrate a dominant right vertebral artery. Posterior cerebral arteries are patent. Anterior and middle cerebral arteries are patent. IMPRESSION: 1. Stable appearing 7 mm distal right ICA aneurysm. 2. 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
== END | disposition home or self-care (01) ==
LOC: RADMRIMAIN 09:37
PROVIDERS: ATTEND Specialist
DX: I67.1 Cerebral aneurysm, nonruptured (principal)
CPT/HCPCS: 70544

== ENCOUNTER → 2021-09-22 | Outpatient (CLI) | payer MEDICAID ==
[2021-09-22 18:12] LABS: Basophils # (A) 0.12 X 10*3/uL (0.00-0.10); Basophils % (A) 1.2 %; Eosinophils # (A) 0.94 X 10*3/uL (0.04-0.35); Eosinophils % (A) 9.5 %; HCT 42.4 % (37.2-46.3); HGB 13.2 g/dL (12.0-15.0); Immature Grans, Automated 0.5 %; Lymphocytes # (A) 3.22 X 10*3/uL (0.90-5.00); Lymphocytes % (A) 32.4 %; MCH 29.3 pg (27.0-32.0); MCHC 31.1 g/dL (32.0-37.0); Mean Platelet Volume 10.3 fL (9.5-12.2); Monocytes # (A) 1.09 X 10*3/uL (0.20-1.00); NRBC Per 100 WBC 0 /100 WBCS (0.0-0.0); Neutrophils # (A) 4.52 X 10*3/uL (1.80-7.70); Neutrophils % (A) 45.4 %; Platelet Count 328 X 10*3/uL (140-440); RBC 4.51 X 10*6/uL (4.10-5.20); RDW 12.9 % (11.5-14.5); WBC 9.94 X 10*3/uL (4.50-10.00)
[2021-09-23 00:08] LABS: Glucose 88 mg/dL (70-110); Potassium 4.1 mmol/L (3.5-5.5); Sodium 141 mmol/L (135-145)
[2021-09-23 00:09] LABS: ALT 17 U/L (8-44); AST 23 U/L (13-35); African American GFR (CKD) 67.6 (60.0-200.0); Albumin 4.7 g/dL (3.8-4.9); Albumin/Globulin Ratio 1.83 (1.60-3.17); Alkaline Phosphatase 110 U/L (41-126); BUN/Creat Ratio 17.12 Ratio (12.00-20.00); Blood Urea Nitrogen 17.8 mg/dL (9.0-27.0); Carbon Dioxide 23.5 mmol/L (20.0-27.5); Chloride 101 mmol/L (96-109); Chol/HDL Ratio 3.84 Ratio; Globulin 2.5 g/dL (1.6-3.3); LDL Cholesterol,Calculated 107.5 mg/dL (0.0-131.0); Non-African American GFR(CKD) 58.4 (60.0-200.0); Total Protein 7.2 g/dL (6.2-8.2)
== END | disposition home or self-care (01) ==
LOC: LABWHC1 11:28
PROVIDERS: ATTEND Family Medicine
DX: I12.9 Hypertensive chronic kidney disease with stage 1 through stage 4 chronic kidney disease, or unspecified chronic kidney disease (principal); E78.5 Hyperlipidemia, unspecified; N18.5 Chronic kidney disease, stage 5
CPT/HCPCS: 36415; 80053; 80061; 84443; 85025

== ENCOUNTER → 2021-12-15 | Outpatient (CLI) | payer MEDICAID ==
--- NOTE | 2021-12-16 20:27 | MM ---
Reason for Exam: Screening (asymptomatic). Last screening mammogram was performed 12 month(s) ago. Patient History: Menarche at age 9. First Full-Term at age 20. Hysterectomy at age 38. Postmenopausal. Other cancer, age 47. Maternal aunt had breast cancer, age 62. Risk Values: Corrina 5 year model risk: 1.5%. NCI Lifetime model risk: 7.0%. Prior Study Comparison: 08/08/2018 Bilateral Screening Mammogram, [facility]. 12/01/2019 Bilateral Screening Mammogram, [facility]. 12/13/2020 Bilateral Screening Mammogram, [facility]. Tissue Density: There are scattered fibroglandular densities. Findings: Analyzed By CAD. There is no suspicious group of microcalcifications or new suspicious mass in either breast. Overall Assessment: Negative, BI-RAD 1 Management: Screening Mammogram of both breasts in 1 year. 1. Patient should continue monthly self breast exams. 2. A clinical breast exam by your physician is recommended on an annual basis. 3. This exam should not preclude additional follow-up of suspicious palpable abnormalities. Electronically signed and approved by: Priya Abbott M.D. Radiologist
== END | disposition home or self-care (01) ==
LOC: RADMAMWWP 10:45
PROVIDERS: ATTEND Family Medicine
DX: Z12.31 Encounter for screening mammogram for malignant neoplasm of breast (principal)
CPT/HCPCS: 77063; 77067

== ENCOUNTER → 2022-01-29 | Outpatient (CLI) | payer OTHER ==
--- NOTE | 2022-01-29 18:20 | BD ---
EXAMINATION TYPE: Axial Bone Density DATE OF EXAM: 01/29/2022 COMPARISON: NONE CLINICAL HISTORY: 61 years year old Female. ICD-10 CODE: Z78.0 MENOPAUSAL STATE Height: 5 FT 3 1/2 IN Weight: 153 FRAX RISK QUESTIONS: Alcohol (3 or more units per day): NO Family History (Parent hip fracture): NO Glucocorticoids (More than 3mos): NO (Ex: prednisone, prednisolone, methylprednisolone, dexamethasone, and hydrocortisone). History of Fracture in Adulthood: NO Secondary Osteoporosis: 1. Type 1 Diabetes: NO 2. Hyperthyroidism: NO 3. Menopause before 45: NO PART HYST AGE 38 4. Malnutrition: NO 5. Chronic liver disease: NO Rheumatoid Arthritis: NO Current Tobacco Use: NO RISK FACTORS HISTORY OF: Surgery to Spine/Hip(right/left)/Wrist (right/left): NO Family History of Osteoporosis: NO Active: YES Diet low in dairy products/other sources of calcium: NO Postmenopausal woman: YES Take estrogen and/or progesterone medications: NO Lost more than 2 inches in height since high school: YES Frequent falls: NO Poor Health: GOOD Hyperparathyroidism: NO Adrenal Insufficiency: NO MEDICATIONS: Additional Medications: VALSARTAN, PROPANOLOL, AMBIEN, Additional History: EXAM MEASUREMENTS: Bone mineral densitometry was performed using the [employer] System. Bone mineral density as measured about the Lumbar spine is: ----- L1-L4(G/cm2): 1.543 T Score Values are as follows: ----- L1: 0.2 ----- L2: 0.5 ----- L3: 4.0 ----- L4: 6.9 ----- L1-L4: 2.9 BASELINE Bone mineral density about the R hip (g/cm2): 1.096 Bone mineral density about the L hip (g/cm2): 1.058 T Score values are as follows: -----R Neck: 0.4 -----L Neck: 0.1 -----R Total: 0.3 -----L Total: 0.1 BASELINE FRAX%s: The graph provided illustrates a 6.2 % chance for a major osteoporotic fx and a 0.1 % chance for the hips probability for fx in 10 years time. IMPRESSION: Normal (Values between +1 and -1 indicate normal bone mass). Consider repeating this study in 5 year s or sooner if there is some new clinical indication. NOTE: T-SCORE=SD OF THE YOUNG ADULT MEAN.
== END | disposition home or self-care (01) ==
LOC: RADBDWWP 10:42
PROVIDERS: ATTEND Family Medicine
DX: Z78.0 Asymptomatic menopausal state (principal)
CPT/HCPCS: 77080

== ENCOUNTER → 2022-09-16 | Outpatient (CLI) | payer OTHER ==
[2022-09-16 18:01] LABS: Basophils # (A) 0.11 X 10*3/uL (0.00-0.10); Basophils % (A) 1.3 %; Eosinophils # (A) 0.79 X 10*3/uL (0.04-0.35); Eosinophils % (A) 9.1 %; HCT 37.4 % (37.2-46.3); HGB 11.5 g/dL (12.0-15.0); Immature Grans, Automated 0.5 %; Lymphocytes # (A) 2.49 X 10*3/uL (0.90-5.00); Lymphocytes % (A) 28.8 %; MCH 28.8 pg (27.0-32.0); MCHC 30.7 g/dL (32.0-37.0); MCV 93.7 fL (80.0-97.0); Mean Platelet Volume 10.1 fL (9.5-12.2); Monocytes # (A) 0.98 X 10*3/uL (0.20-1.00); Monocytes % (A) 11.3 %; NRBC Per 100 WBC 0 /100 WBCS (0.0-0.0); Neutrophils # (A) 4.25 X 10*3/uL (1.80-7.70); Platelet Count 316 X 10*3/uL (140-440); RBC 3.99 X 10*6/uL (4.10-5.20); RDW 13.2 % (11.5-14.5); WBC 8.66 X 10*3/uL (4.50-10.00)
[2022-09-16 18:48] LABS: ALT 23 U/L (8-44); AST 24 U/L (13-35); African American GFR (CKD) 67.2 (60.0-200.0); Albumin 4.3 g/dL (3.8-4.9); Albumin/Globulin Ratio 1.71 (1.60-3.17); Alkaline Phosphatase 90 U/L (41-126); BUN/Creat Ratio 17.88 Ratio (12.00-20.00); Blood Urea Nitrogen 18.6 mg/dL (9.0-27.0); Calcium 10.1 mg/dL (8.7-10.3); Carbon Dioxide 23.8 mmol/L (20.0-27.5); Chloride 105 mmol/L (96-109); Chol/HDL Ratio 3.63 Ratio; Globulin 2.5 g/dL (1.6-3.3); Glucose 92 mg/dL (70-110); LDL Cholesterol,Calculated 96.9 mg/dL (0.0-131.0); Non-African American GFR(CKD) 57.9 (60.0-200.0); Potassium 4.1 mmol/L (3.5-5.5); Sodium 142 mmol/L (135-145); Total Protein 6.8 g/dL (6.2-8.2)
== END | disposition home or self-care (01) ==
LOC: LABWHC1 11:10
PROVIDERS: ATTEND Family Medicine
DX: Z00.00 Encounter for general adult medical examination without abnormal findings (principal)
CPT/HCPCS: 36415; 80053; 80061; 84443; 85025

== ENCOUNTER → 2023-07-30 | Outpatient (CLI) | payer OTHER ==
--- NOTE | 2023-07-30 12:58 | FL ---
COMPARISON: NONE DATE OF EXAM: 07/30/2023 HISTORY: Dysphasia A number of thin and thick substances were ingested under the care of the department of speech pathol ogy. There is no evidence of aspiration or penetration. There is no evidence of obstruction. 43 se conds of fluoroscopy. IMPRESSION: 1. No evidence of aspiration or penetration.
== END | disposition home or self-care (01) ==
LOC: RADFLMAIN 11:01
PROVIDERS: ATTEND Otolaryngology
DX: R13.13 Dysphagia, pharyngeal phase (principal)
CPT/HCPCS: 74230

== ENCOUNTER → 2024-07-17 | Outpatient (CLI) | payer BC ==
[2024-07-17 15:26] LABS: Basophils # (A) 0.13 X 10*3/uL (0.00-0.10); Basophils % (A) 1.6 %; Eosinophils # (A) 0.84 X 10*3/uL (0.04-0.35); Eosinophils % (A) 10.1 %; HCT 39.6 % (37.2-46.3); HGB 12.1 g/dL (12.0-15.0); Lymphocytes # (A) 2.64 X 10*3/uL (0.90-5.00); Lymphocytes % (A) 31.7 %; MCH 28.1 pg (27.0-32.0); MCHC 30.6 g/dL (32.0-37.0); MCV 91.9 FL (80.0-97.0); Mean Platelet Volume 9.8 FL (9.5-12.2); Monocytes # (A) 0.94 X 10*3/uL (0.20-1.00); Monocytes % (A) 11.3 %; NRBC Per 100 WBC 0 X 10*3/uL (0.00-0.01); Neutrophils # (A) 3.77 X 10*3/uL (1.80-7.70); Neutrophils % (A) 45.1 %; Platelet Count 317 X 10*3/uL (140-440); RBC 4.31 X 10*6/uL (4.10-5.20); RDW 13.4 % (11.5-14.5); WBC 8.34 X 10*3/uL (4.50-10.00)
[2024-07-17 16:10] LABS: ALT 22 U/L (8-44); AST 25 U/L (13-35); Albumin 4.3 g/dL (3.8-4.9); Albumin/Globulin Ratio 1.65 Ratio (1.60-3.17); Alkaline Phosphatase 102 U/L (41-126); BUN/Creat Ratio 21.22 Ratio (12.00-20.00); Blood Urea Nitrogen 19.1 mg/dL (9.0-27.0); Calcium 10.3 mg/dL (8.7-10.3); Carbon Dioxide 26.7 mmol/L (21.6-31.8); Chloride 103 mmol/L (96-109); Chol/HDL Ratio 3.25 Ratio; Globulin 2.6 g/dL (1.6-3.3); Glucose 92 mg/dL (70-110); LDL Cholesterol,Calculated 96.2 mg/dL (0.0-131.0); Potassium 4.4 mmol/L (3.5-5.5); Sodium 140 mmol/L (135-145); Total Bilirubin 0.6 mg/dL (0.3-1.2); Total Protein 6.9 g/dL (6.2-8.2)
== END | disposition home or self-care (01) ==
LOC: LABWHC1 10:19
PROVIDERS: ATTEND Family Medicine
DX: Z00.00 Encounter for general adult medical examination without abnormal findings (principal)
CPT/HCPCS: 36415; 80053; 80061; 84443; 85025

== ENCOUNTER → 2024-07-20 | Outpatient (CLI) | payer BC ==
--- NOTE | 2024-07-20 13:59 | CT ---
EXAMINATION TYPE: CT head without contrast CT angio head DATE OF EXAM: 07/20/2024 1:02 PM COMPARISON: 12/21/2019 CLINICAL INDICATION: Female, 63 years old with history of I67.1 CEREBRAL ANEURYSM, NONRUPTURED, pre b ronchial navigation, TECHNIQUE: Contiguous axial scanning of the brain performed without and with IV Contrast, patient inj ected with 100 mL of Isovue 370. Coronal/sagittal reconstructions performed. CT DLP: 2153 mGycm, Automated exposure control for dose reduction was used. FINDINGS: NONCONTRAST HEAD: Moderate patchy white matter hypodensity is redemonstrated in both cerebral hemispheres. Interval new hypodensity periventricular white matter adjacent to the frontal horn of right lateral ventricle. Right A1 segment and right carotid siphon arterial stents demonstrated. Otherwise, no evidence for acute intracranial hemorrhage, acute ischemic change, mass, mass effect, m idline shift, or extra-axial fluid collection. No hydrocephalus. No effacement of cerebral sulci or b sangeetha subarachnoid cisterns. Wesley-white matter differentiation is maintained. CT ANGIOGRAPHY: The vertebral and basilar arteries as well as the remainder of the posterior circulation is patent. Dural venous sinuses are patent. The bilateral internal carotid arteries and remainder of the anterior circulation are patent. The stent along the clinoid and supraclinoid segment of the right ICA shows successful exclusion of t he previous 7 mm saccular aneurysm. Additional stent along the A1 segment successfully excluding the previous 3 mm anterior communicating artery aneurysm. No new aneurysm is seen. Trace mucosal thickening ethmoid air cells. Moderate mucosal thickening right maxillary sinus and mil d left ethmoid air cells. Orbits and globes are intact. Mastoid air cells well pneumatized. IMPRESSION (noncontrast CT head and CTA): 1. MODERATE PATCHY PART OF CHRONIC SMALL VESSEL ISCHEMIC DISEASE. 2. SMALL AREA OF DEEP WHITE MATTER INFARCT/ENCEPHALOMALACIA ADJACENT TO THE FRONTAL HORN OF THE RIGHT LATERAL VENTRICLE IS NEW FROM 12/21/2019. 3. NO ACUTE INTRACRANIAL ABNORMALITY SEEN. 4. STENTING ACROSS THE CLINOID/SUPRACLINOID SEGMENT RIGHT ICA AND ADDITIONAL STENTING ACROSS THE A1 S EGMENT RIGHT LISSY. SUCCESSFUL EXCLUSION OF THE PREVIOUS SACCULAR ANEURYSMS AT BOTH SITES. NO NEW ANEUR YSM IS SEEN. NO SIGNIFICANT STENOSIS IDENTIFIED. [facility], Workstation: [id number], 07/20/2024 1:57 PM
== END | disposition home or self-care (01) ==
LOC: RADCTMAIN 11:48
PROVIDERS: ATTEND Psychiatry & Neurology Neurology
DX: I67.1 Cerebral aneurysm, nonruptured (principal); I67.82 Cerebral ischemia; G93.89 Other specified disorders of brain
CPT/HCPCS: 70496; Q9967

== ENCOUNTER → 2024-07-25 | Outpatient (CLI) | payer BC ==
[2024-07-25 21:57] LABS: Cardiolipin Ab IgG Interp Negative (Negative); Cardiolipin Ab IgM Interp Negative (Negative); Cardiolipin IgA Antibody 4.7 U/mL; Cardiolipin IgM Antibody <1.5 U/mL
[2024-07-26 13:01] LABS: APTT 39 Sec(s) (<43); Dilute Russell Viper Venom 35 Sec(s) (<44)
== END | disposition home or self-care (01) ==
LOC: LABWHC1 10:55
PROVIDERS: ATTEND Psychiatry & Neurology Neurology
DX: I63.9 Cerebral infarction, unspecified (principal)
CPT/HCPCS: 36415; 82607; 82746; 83090; 85613; 85730; 86147

== ENCOUNTER → 2024-08-31 | Outpatient (CLI) | payer BC ==
--- NOTE | 2024-08-31 13:31 | CA ---
Transthoracic Echo Report Name: Kenzie Yancey Age: 63 Gender: F : 1960 Exam Date: 08/31/2024 11:15 Exam Location: [place] [facility] Ht (in): 67 Wt (lb): 145 Ordering Physician: Stephen Ramirez DO Attending/Referring Phys: Vallez Filter Operator Mary Ellen Wu RDCS Procedure CPT: Indications: I82.90 ACUTE EMBOLISM Cardiac Hx: Technical Quality: Good Contrast 1: Total Dose (mL): Contrast 2: Total Dose (mL): MEASUREMENTS (Male / Female) Normal Values 2D ECHO LV Diastolic Diameter PLAX 4.2 cm 4.2 - 5.9 / 3.9 - 5.3 cm LV Systolic Diameter PLAX 2.8 cm IVS Diastolic Thickness 0.7 cm 0.6 - 1.0 / 0.6 - 0.9 cm LVPW Diastolic Thickness 0.8 cm 0.6 - 1.0 / 0.6 - 0.9 cm LV Relative Wall Thickness 0.4 LVOT Diameter 2.0 cm LV Diastolic Volume MOD BP 91.1 cm??? 67 - 155 / 56 - 104 cm??? LV Systolic Volume MOD BP 36.1 cm??? 22 - 58 / 19 - 49 cm??? LV Ejection Fraction MOD BP 60.4 % >= 55 % LV Cardiac Index MOD BP 1994.2 cm???/min???m??? LV Diastolic Volume MOD 4C 87.7 cm??? LV Systolic Volume MOD 4C 34.5 cm??? LV Ejection Fraction MOD 4C 60.7 % LV Cardiac Index MOD 4C 1927.4 cm???/min???m??? LV Diastolic Length 4C 7.8 cm LV Systolic Length 4C 6.4 cm LV Diastolic Volume MOD 2C 92.6 cm??? LV Systolic Volume MOD 2C 37.9 cm??? LV Ejection Fraction MOD 2C 59.1 % LV Cardiac Index MOD 2C 1981.4 cm???/min???m??? LV Diastolic Length 2C 7.6 cm LV Systolic Length 2C 6.3 cm LA Volume 43.8 cm??? 18 - 58 / 22 - 52 cm??? LA Volume Index 24.8 cm???/m??? 16 - 28 cm???/m??? DOPPLER AV Peak Velocity 122.0 cm/s AV Peak Gradient 5.9 mmHg AV Mean Velocity 85.9 cm/s AV Mean Gradient 3.3 mmHg AV Velocity Time Integral 25.8 cm LVOT Peak Velocity 105.8 cm/s LVOT Peak Gradient 4.5 mmHg LVOT Velocity Time Integral 21.0 cm LVOT Stroke Volume 65.4 cm??? LVOT Stroke Volume Index 37.1 ml/m??? LVOT Cardiac Index 2370.3 cm???/min???m??? AV Area Cont Eq vti 2.5 cm??? AV Area Cont Eq pk 2.7 cm??? MV Area PHT 3.8 cm??? Mitral E Point Velocity 56.6 cm/s Mitral A Point Velocity 64.8 cm/s Mitral E to A Ratio 0.9 MV Deceleration Time 199.2 ms TR Peak Velocity 221.9 cm/s TR Peak Gradient 19.7 mmHg Right Atrial Pressure 5.0 mmHg Pulmonary Artery Systolic Pressu 24.7 mmHg Right Ventricular Systolic Press 24.7 mmHg PV Peak Velocity 73.5 cm/s PV Peak Gradient 2.2 mmHg FINDINGS Left Ventricle Left ventricular ejection fraction is estimated at 55 to 60 %. Left ventricular cavity size normal. Left ventricular wall thickness normal. No obvious regional wall motion abnormalities. Right Ventricle Normal right ventricular size and function. Right ventricular systolic pressure within normal limits. Right Atrium Normal right atrial size. Left Atrium Normal left atrial size. Mitral Valve Structurally normal mitral valve. No evidence for mitral valve prolapse. No mitral stenosis. Mild mitral regurgitation. Aortic Valve Trileaflet aortic valve. No aortic stenosis. Trace aortic regurgitation. Tricuspid Valve Structurally normal tricuspid valve. No tricuspid stenosis. Mild tricuspid regurgitation. Pulmonic Valve Structurally normal pulmonic valve. No pulmonic stenosis. Trace pulmonic regurgitation. Pericardium No pericardial effusion. Aorta Normal size aortic root and proximal ascending aorta. CONCLUSIONS 1. Normal left ventricular size and systolic function 2. Mild mitral and tricuspid regurgitation Previewed by: Dr. Giana Roberson MD (Electronically Signed) Final Date: 31 August 2024 13:30
== END | disposition home or self-care (01) ==
LOC: RADECHMAIN 11:07
PROVIDERS: ATTEND Psychiatry & Neurology Neurology
DX: I08.1 Rheumatic disorders of both mitral and tricuspid valves (principal); I82.90 Acute embolism and thrombosis of unspecified vein
CPT/HCPCS: 93306